=== PATIENT | male | born 1965 | race Caucasian/White ===

== ENCOUNTER → 2024-12-06 15:17 | Outpatient (CLI) | payer BC, OTHER, SELFPAY ==
--- NOTE | 2024-12-06 15:19 | DI.RAD.S_ITS ---
PROCEDURE: XR HAND RT MIN 3V INDICATIONS: pain TECHNIQUE: 3 views of the hand(s) acquired. COMPARISON: None. FINDINGS: Bones: No acute displaced fracture or dislocation. Mild STT and 1st CMC degenerative changes. There is a focal subchondral cyst at the head of the 5th proximal phalanx. Soft tissues: No suspicious soft tissue calcifications. IMPRESSION: No acute radiographic abnormality. 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 Note is made of a possible subchondral cyst at the head of the 5th proximal phalanx. If there is high concern for further derangement, consider MRI evaluation. Dictated by: Wyatt Rhodes M.D. on 12/06/2024 at 15:59 Approved by: Wyatt Rhodes M.D. on 12/06/2024 at 16:00
--- NOTE | 2024-12-06 15:19 | DI.RAD.S_ITS ---
PROCEDURE: XR WRIST RT MIN 3V INDICATIONS: injury TECHNIQUE: 4 views of the wrist were acquired. COMPARISON: None. FINDINGS: Bones: Mild 1st MC in STT degenerative changes. No acute displaced fracture or dislocation. Soft tissues: No suspicious calcifications. IMPRESSION: No acute radiographic abnormality. Mild degenerative changes. If there is high concern for occult injury, consider repeat radiography or cross-sectional imaging. Dictated by: Wyatt Rhodes M.D. on 12/06/2024 at 16:00 Approved by: Wyatt Rhodes M.D. on 12/06/2024 at 16:01
== END ==
PROVIDERS: Referring Provider Physician Assistant; Visit Provider Physician Assistant
DX: M19.041 Primary osteoarthritis, right hand (principal); M79.643 Pain in unspecified hand; M25.539 Pain in unspecified wrist
CPT/HCPCS: 73110; 73130